=== PATIENT | male | born 1990 | race Two or more races ===

== ENCOUNTER 2023-10-11 06:48 | Inpatient (IN) | payer SELFPAY ==
--- NOTE | ~2023-10-11 | CT_ITS ---
EXAMINATION: CT FEMUR WITHOUT CONTRAST, RIGHT CLINICAL INFORMATION: Attention to the right thigh. Question hematoma. COMPARISON: None available. TECHNIQUE: Multidetector volumetric imaging was obtained through the right thigh without contrast. Multiplanar reformatted images in coronal and sagittal orientations were submitted. This CT examination was performed using dose optimization techniques as appropriate, variously including the following: *Automated exposure control *Adjustment of mA and/or kV according to patient size (this includes techniques or standardized protocols for targeted exams where dose is matched to indication/reason for exam; i.e. extremities or head) *Use of iterative reconstruction technique DLP: 346 mGy-cm FINDINGS: No fracture or malalignment. Right hip joint appears well-preserved. Bone mineralization is normal. No fractures. Imaged portion of the knee is unremarkable. There is fat stranding surrounding the gluteus minimus and gluteus medius muscles as well as the proximal portion of the vastus lateralis, potentially due to muscle strains are contusions in this region. No discrete hematoma is identified. A intramuscular hematoma would be difficult to exclude. There is also fat stranding surrounding the sciatic nerve over a distance of approximately 12 cm from the level of the ischial tuberosity to the mid thigh, potentially corresponding to an additional site of soft tissue contusion or focal injury. No fluid collections are identified. No appreciable hip joint effusion. Imaged intrapelvic soft tissues are unremarkable. No adenopathy. No skin thickening. CT/CT femur RT wo IV con IMPRESSION: 1. Fat stranding surrounding the gluteus minimus and gluteus medius muscles as well as the proximal portion of the vastus lateralis, potentially due to muscle strains or contusions. No discrete hematoma is identified. 2. Fat stranding surrounding the sciatic nerve over a distance of approximately 12 cm from the level of the ischial tuberosity to the mid thigh, potentially corresponding to an additional site of soft tissue contusion or focal injury. 3. No fractures.
--- NOTE | ~2023-10-11 | XR_ITS ---
EXAMINATION: XR CHEST CLINICAL INFORMATION: Pneumonia COMPARISON: None available. TECHNIQUE: 2 views of the chest were obtained. FINDINGS: Right upper lobe consolidation is present sitting on top of the minor fissure. The lungs are otherwise clear. Heart size normal. No pleural effusions. XR/XR chest 2V IMPRESSION: Right upper lobe pneumonia.
--- NOTE | ~2023-10-11 | CT_ITS ---
EXAMINATION: CT BRAIN WITHOUT CONTRAST CT CERVICAL SPINE WITHOUT CONTRAST CLINICAL INFORMATION: 33-year-old with recent trauma. COMPARISON: None available. TECHNIQUE: Volumetric MDCT imaging of the brain was done from the skull base to the vertex reconstructed at 2 and 5 mm partition thickness with multiplanar reformatted reconstructions. Volumetric CT imaging of the cervical spine was performed with multiplanar reformatted reconstructions. This CT examination was performed using dose optimization techniques as appropriate, variously including the following: * Automated exposure control * Adjustment of mA and/or kV according to patient size (this includes techniques or standardized protocols for targeted exams where dose is matched to indication/reason for exam; i.e. extremities or head) * Use of iterative reconstruction technique DLP: 1480 mGy-cm BRAIN FINDINGS: Brain Volume: Within normal limits within the limitations of qualitative assessment. Structural: No malformations. Brain and Meninges: There is relatively disproportionate hypodensity involving the globi pallidi bilaterally, which is a nonspecific finding. Otherwise, the remainder of the brain parenchyma is normal in morphology and attenuation. Abdalla-white matter interface is preserved. There is no acute territorial infarct, intracranial hemorrhage, extra-axial fluid collection, space-occupying process, or mass effect. Ventricles and Subarachnoid Spaces: The ventricular system and subarachnoid spaces are within normal range; there is no hydrocephalus. Orbital Structures: Grossly unremarkable within the limitations of the study. Osseous Structures, Sinuses/Mastoids, Extracranial Soft Tissues: The calvarium appears grossly intact. The mastoids and middle ear cavities are unopacified. There is some mucosal thickening and a small retention cyst along the anterior wall of the sphenoid sinus on the right, and there is some mucosal thickening with a small air-fluid level in the right maxillary sinus, with soft tissue density occluding the right maxillary sinus ostium suggesting right-sided maxillary sinusitis. CT/CT cervical spine wo IV con IMPRESSION: 1. Findings suggesting disproportionate hypodensity of the globi pallidi bilaterally. Recommend clinical correlation for any history of toxic exposures or metabolic abnormalities that could account for this. Carbon monoxide poisoning is considered unlikely in the absence of clinical evidence of anoxic-encephalopathy. Consider MRI for additional evaluation if clinically warranted. 2. No acute territorial infarct, intracranial hemorrhage, extra-axial fluid collection, significant space-occupying process, mass effect, or hydrocephalus. CERVICAL FINDINGS: Technical Note: Images are degraded by motion artifact. The cervical spine is anatomically aligned. There is no spondylolisthesis or significant retrolisthesis. The craniocervical junction and C1-C2 articulations are grossly intact. No acute fractures are identified within the limitations of the study. Facet joints are grossly intact. The intervertebral disc space heights are well maintained. There is no significant spondylosis. No significant bony canal or neural foraminal stenosis is identified within the limitations of the study. Evaluation of the soft tissues within the canal and neural foramina is limited on this exam. If this is a clinical concern, MRI would be recommended for better assessment as disc herniations and cord impingement cannot be excluded on this study. No significant DJD is seen. Incidental note is made of patchy infiltrates in the right upper lobe suggesting infectious or inflammatory disease. Correlate with clinical symptoms and chest x-ray. IMPRESSION: 1. Limitations due to motion artifact. 2. Within these limitations, no gross acute fracture or dislocation seen and no significant bony canal or neural foraminal stenosis. Soft tissues within the canal and neural foramina are not well evaluated. If clinically warranted, MRI of the cervical spine may be of additional value, as detailed above. 3. Right upper lobe infiltrate. Infectious or inflammatory disease is suspected. Correlate with clinical symptoms and chest x-ray. The [facility] staff will call to confirm receipt of this report with acknowledgement of the findings and any recommendations.
[2023-10-11 07:00] VITALS: BP 134/91; BP 144/95; PULSE 83; PULSE 86; RESP 16; TEMP 37.2; O2SAT 96; BMI 25.6
[2023-10-11 07:05] VITALS: BP 144/95; PULSE 96; RESP 16; TEMP 37.2; O2SAT 96
--- NOTE | 2023-10-11 07:08 | PC.NURSE ---
patient arrives via EMS from home, per EMS family called r/t patient sleeping face down in his room and being difficult to arouse,. per EMS patient with psychiatric history and history of drug abuse, EMS tells this RN that patient had to be narcanned yesterday. patient smells of ETOH at this time, only alert to painful stimuli, patient not willing to answer this RNs questions, stating i just want to sleep . patient able to maintain his own airway at this time, no complaints offered, vital signs stable. no visitors allowed at this time due to family becoming aggressive with EMS.
--- NOTE | 2023-10-11 07:34 | ED.GENADULT ---
HPI - General Adult General Chief complaint: ETOH/Substance Use Stated complaint: crisis Time Seen by Provider: 10/11/23 07:15 Source: EMS Mode of arrival: EMS History of Present Illness HPI narrative: This is a 33 years old brought in because was found unresponsive by the family. Per EMS report he has a history of alcohol abuse and drug abuse. Patient right now is unable to give history. Onset (ago): hour(s) (1) Radiation: non-radiation Severity: moderate Relieving factors: none Exacerbating factors: none Related Data Allergies Allergy/AdvReac Type Severity Reaction Status Date / Time No Known Allergies Allergy Verified 10/11/23 07:05 Review of Systems Review of Systems: Yes Unobtainable due to mental condition [facility] Social History Social History Unable to assess alcohol history related to: Refusing to respond Use of substances other than those prescribed or required for medical reasons: Refusing to respond Advance Directives: No Do you have a plan to hurt others: No Plan Physical Exam ED Vital Signs: Vital Signs - 24 hr 10/11/23 07:00 10/11/23 07:05 10/11/23 12:00 Temperature 98.9 F 98.9 F 98.8 F Pulse Rate 83 96 96 Respiratory Rate 16 16 18 Blood Pressure 144/95 H 144/95 H 135/84 Pulse Oximetry 96 96 100 Oxygen Delivery Method Room Air Room Air Room Air BMI result Body Mass Index 25.6 Vital sign stable is lethargic but easily arousable Const General: no acute distress Nutritional Appearance: average body habitus HENMT Other: No sign of trauma in the head Face and sinus: Yes normal facial exam Neck Neck: Yes normal visual inspection Chest Chest palpation & inspection: normal inspection of the chest Resp Effort & Inspection: normal respiratory effort Auscultation: clear to auscultation bilaterally Cardio Jugular venous distension: no JVD Rate: regular rate Rhythm: regular rhythm GI Inspection: Yes normal to inspection Palpation (GI): Soft to palpation, not firm and nontender Auscultation: normal bowel sounds Skin General skin exam: no rashes or lesions noted and elasticity normal Rashes: no rashes Neuro General: other (Lethargic but arousable) Course Reevaluation(s) Reevaluation #1: More awake urinalysis resulted urine toxicology resulted positive fentanyl and cocaine. I spoke with his girlfriend she tells me that he just got out detox few days ago Time: 12:47 Reevaluation #2: Patient remain stable hemodynamically, chest x-ray showed a lobar pneumonia, he has an elevated CPK. Blood culture done antibiotic administer fluid given for the rhabdomyolysis. His vital signs are very stable he is normotensive he is not tachycardic and he is afebrile, CT scan of the right thigh was ordered because he is complaining right thigh pain and on palpation appear to have a hematoma. I discussed the case with the hospitalist Time: 15:32 Reevaluation #3: Off shift now CT femur pending I made Dr. Ray aware of the pending CT result Time: 16:05 Medications Administered Generic Name Dose Route Start Last Admin Trade Name Freq PRN Reason Stop Dose Admin Sodium Chloride 1,000 mls @ 999 mls/hr 10/11/23 15:30 10/11/23 15:42 Ns IVCONT 10/11/23 16:30 999 mls/hr .Q1H1M PEREZ Administration Sodium Chloride 1,000 mls @ 999 mls/hr 10/11/23 15:30 10/11/23 15:58 Ns IVCONT 10/11/23 16:30 999 mls/hr .Q1H1M PEREZ Administration Discontinued Medications Generic Name Dose Route Start Last Admin Trade Name Freq PRN Reason Stop Dose Admin Piperacillin Sod/Tazobactam 100 mls @ 200 mls/hr 10/11/23 13:27 10/11/23 14:52 Sod 4.5 gm/ Sodium Chloride IV 10/11/23 13:56 Infused ONCE ONE Infusion Vancomycin HCl 2,000 mg in 500 mls @ 250 mls/hr 10/11/23 13:45 10/11/23 15:10 Vancomycin/Ns IV 10/11/23 15:44 250 mls/hr ONCE ONE Administration Sodium Chloride 1,000 mls @ 999 mls/hr 10/11/23 13:45 10/11/23 15:15 Ns IVCONT 10/11/23 14:45 Infused .Q1H1M PEREZ Infusion Medical Decision Making Medical Decision Making [facility] Narrative: Patient was found down by the family will obtain imaging of the head and brain labs and reassess Differential Diagnosis Differential Diagnoses: The differential diagnosis associated with the presentation includes Subdural hematoma/epidural hematoma/alcohol intoxication/drug abuse Admission/Observation Consideration of admission/observation: Escalation of care including admission/observation considered Consult Healthcare Provider Management of the patient was discussed with: Hospitalist Lab Data MDM Lab Attestation statement: I reviewed the patient's lab results. 10/11/23 07:41 10/11/23 07:41 Labs: Lab Results 10/11/23 10/11/23 Range/Units 07:41 10:39 WBC 13.5 H (4.8-10.8) X10*3/uL RBC 5.39 (4.60-5.80) X10*6/uL Hgb 14.8 (14.0-18.0) g/dl Hct 44.2 (42.0-52.0) % MCV 82.0 (80.0-98.0) fL MCH 27.5 (27.0-33.0) pg MCHC 33.5 (31.0-36.0) g/dl RDW 12.3 (11.0-16.0) % Plt Count 175 (160-400) X10*3/uL MPV 9.8 (9.4-12.4) fL Immature Gran % (Auto) 0.4 (0.0-0.4) % Neut % (Auto) 84.5 H (45-73) % Lymph % (Auto) 7.8 L (20-40) % Bonner % (Auto) 7.2 (2-11) % Eos % (Auto) 0.0 (0-4) % Baso % (Auto) 0.1 (0-2) % Lymph # (Auto) 1.1 L (1.2-4.9) X10*3/uL Bonner # (Auto) 1.0 (0.1-1.2) X10*3/uL Eos # (Auto) 0.0 (0.0-0.4) X10*3/uL Baso # (Auto) 0.0 (0.0-0.2) X10*3/uL Abs Immat Gran (auto) 0.06 H (0.00-0.03) X10*3/uL Absolute Neuts (auto) 11.4 H (2.0-8.3) x10*3/uL Absolute Nucleated RBC 0.000 (0.0-0.012) X10*3/uL Nucleated RBC % (auto) 0.0 (0.0-0.2) /100WBC Sodium 140 (135-145) mmol/L Potassium 3.6 (3.3-5.1) mmol/L Chloride 105 (96-108) mmol/L Carbon Dioxide 24 (22-29) mmol/L Anion Gap 15 (12-20) BUN 25 H (9-16) mg/dL Creatinine 1.13 (0.5-1.4) mg/dL Estim Creat Clear Calc 103.9 Estimated GFR > 60 Random Glucose 120 H (60-115) mg/dL Calcium 8.9 (8.4-10.2) mg/dL Total Bilirubin 1.2 H (0.0-1.0) mg/dL AST 439 H (5-37) U/L ALT 144 H (0-40) U/L Alkaline Phosphatase 53 (39-117) U/L Total Creatine Kinase > 22628 H (38-174) U/L Total Protein 8.1 H (6.5-8.0) g/dL Albumin 4.6 (3.5-5.0) g/dL Urine Color Dark Yellow Urine Appearance Cloudy Urine pH 5.5 (5.0-9.0) Ur Specific [place] 1.020 (1.005-1.025) Urine Protein 100 (2+) H (Neg-Trace) mg/dL Urine Glucose (UA) Negative (Negative) mg/dL Urine Ketones 15 (Negative) mg/dL Urine Blood Large (3+) H (Negative) Urine Nitrite Negative (Negative) Ur Leukocyte Esterase Trace H (Negative) Urine RBC 3-5 H (0-2) /HPF Urine WBC 0-5 (0-5) /HPF Ur Squamous Epith Cells 11-20 (0-2) /HPF Urine Bacteria None Seen (None Seen) Hyaline Casts 0-2 (0-2) /LPF Granular Casts Present Urine Opiates Screen Not Detected (Not Detect) Ur Buprenorphine Scrn Not Detected (Not Detect) ng/mL Ur Oxycodone Screen Not Detected (Not Detect) ng/mL Urine Methadone Screen Not Detected (Not Detect) ng/mL Urine Fentanyl Screen POSITIVE H (Not Detect) Ur Barbiturates Screen Not Detected (Not Detect) Ur Phencyclidine Scrn Not Detected (Not Detect) Ur Amphetamines Screen Not Detected (Not Detect) U Benzodiazepines Scrn Not Detected (Not Detect) Urine Cocaine Screen POSITIVE H (Not Detect) U Marijuana (THC) Screen Not Detected (Not Detect) Ethyl Alcohol < 10 mg/dL Independent Interpretation I performed an independent interpretation of an: Plain X-Ray Interpretation: I personally reviewed interpreted the chest x-ray as right upper lobe pneumonia Radiology Impression Discussion of test interpretation with radiology: I have reviewed the radiologist's reading. Radiologist Impression: cc: Duncan Moreno MD; Physician,None ~ EXAMINATION: XR CHEST CLINICAL INFORMATION: Pneumonia COMPARISON: None available. TECHNIQUE: 2 views of the chest were obtained. FINDINGS: Right upper lobe consolidation is present sitting on top of the minor fissure. The lungs are otherwise clear. Heart size normal. No pleural effusions. XR/XR chest 2V IMPRESSION: Right upper lobe pneumonia. Dictated By: Mike Miller MD Signed By: <Electronically signed by Mike Miller MD in OV> 10/11/23 1307 DD/ 1156 Independent Historian Clinical information obtained from an independent historian. History obtained from or confirmed by: Other girlfriend Chronic Conditions Patient?s care impacted by: Other (Substance abuse) Critical Care Time Critical Care Time Critical Care Time: Yes Total Critical Care Time: 60 Attestation: Altered mental status/rhabdomyolysis pneumonia, IV fluids IV antibiotic Discharge Plan Discharge Clinical Impression: Opioid use disorder Pneumonia Qualifiers: Pneumonia type: due to unspecified organism Laterality: right Lung location: upper lobe of lung Qualified Code(s): J18.9 - Pneumonia, unspecified organism Rhabdomyolysis Qualifiers: Rhabdomyolysis type: non-traumatic Qualified Code(s): M62.82 - Rhabdomyolysis Patient Disposition: Admitted As Inpatient Print Language: Ecuadorean
[2023-10-11 07:44] LABS: MANUAL DIFF FLAG NO
[2023-10-11 07:45] LABS: Basophils Percent Auto 0.1 % (0-2); Hematocrit 44.2 % (42.0-52.0); Hemoglobin 14.8 g/dl (14.0-18.0); Imm Gran Abs Auto 0.06 X10*3/uL (0.00-0.03); Imm Gran Pct Auto 0.4 % (0.0-0.4); Lymphocytes Absolute Auto 1.1 X10*3/uL (1.2-4.9); Lymphocytes Percent Auto 7.8 % (20-40); Mean Corpuscular HGB Conc 33.5 g/dl (31.0-36.0); Mean Corpuscular Hemoglobin 27.5 pg (27.0-33.0); Mean Platelet Volume 9.8 fL (9.4-12.4); Monocytes Percent Auto 7.2 % (2-11); Neutrophils Absolute Auto 11.4 x10*3/uL (2.0-8.3); Neutrophils Percent Auto 84.5 % (45-73); Platelet Count 175 X10*3/uL (160-400); Red Blood Count 5.39 X10*6/uL (4.60-5.80); Red Cell Distribution Width 12.3 % (11.0-16.0); White Blood Count 13.5 X10*3/uL (4.8-10.8)
[2023-10-11 08:08] LABS: Alanine Aminotransferase 144 U/L (0-40); Albumin Level 4.6 g/dL (3.5-5.0); Alkaline Phosphatase 53 U/L (39-117); Anion Gap 15 (12-20); Aspartate Amino Transferase 439 U/L (5-37); Bilirubin Total 1.2 mg/dL (0.0-1.0); Blood Urea Nitrogen 25 mg/dL (9-16); Calcium 8.9 mg/dL (8.4-10.2); Carbon Dioxide 24 mmol/L (22-29); Chloride 105 mmol/L (96-108); Creatinine Clr Calc Pharmacy 103.9; Estimated Glomerular Filt Rate > 60; Ethanol < 10 mg/dL; Glucose Random 120 mg/dL (60-115); Potassium 3.6 mmol/L (3.3-5.1); Sodium 140 mmol/L (135-145); Total Protein 8.1 g/dL (6.5-8.0)
--- NOTE | 2023-10-11 08:53 | PC.NURSE ---
patient reeducated on need for urine sample, states he will not give one at this time. made aware
--- NOTE | 2023-10-11 10:35 | PC.NURSE ---
Urine obtained from patient, urine dark brown, provider aware
[2023-10-11 10:53] LABS: Appearance Urine Cloudy; Color Urine Dark Yellow; Glucose Urine UA Negative (Negative); Leukocyte Esterase Urine Trace (Negative); Nitrite Urine Negative (Negative); PH 5.5 (5.0-9.0); UMIC TRIGGER UACC YES; Urine Blood Large (3+) (Negative); Urine Ketones 15 mg/dL (Negative); Urine Protein 100 (2+) mg/dL (Neg-Trace)
[2023-10-11 10:58] LABS: Amphetamine Screen Urine Not Detected (Not Detect); Barbiturates, Urine Not Detected (Not Detect); Benzodiazepines Screen Urine Not Detected (Not Detect); Buprenorphine Scr Not Detected (Not Detect); Cannabinoid Screen Urine Not Detected (Not Detect); Cocaine Screen Urine POSITIVE (Not Detect); Fentanyl, urine POSITIVE (Not Detect); Methadone Screen, Urine Not Detected (Not Detect); Opiate Screen Urine Not Detected (Not Detect); Oxycodone Screen Urine Not Detected (Not Detect); Phencyclidine Screen Urine Not Detected (Not Detect)
[2023-10-11 11:04] LABS: Bacteria Urine None Seen (None Seen); Granular Casts Urine Present; Hyaline Casts Urine 0-2 /LPF (0-2); WBC Urine 0-5 /HPF (0-5)
[2023-10-11 12:00] VITALS: BP 135/84; PULSE 96; RESP 18; TEMP 37.1; O2SAT 100
[2023-10-11] MEDS: Piperacillin Sodium/Tazobactam 4.5 GM in 0.9 % Sodium Chloride 100 ML IV (14:08)
[2023-10-11] MEDS: 0.9 % Sodium Chloride 1,000 ML 999 ML IVCONT ×3 (14:09→15:58)
[2023-10-11] MEDS: vancomycin/NS 2,000 MG/500 ML PLAST..BAG 250 MG IV (15:10)
--- NOTE | 2023-10-11 15:59 | PM.IMHP ---
History of Present Illness Date of Service: 10/11/23 Attending physician on admission: Yuniel Gamez Chief Complaint: unresponsive 33 year old male with history of anxiety/depression and crack cocaine abuse presented to the ED earlier today for evaluation of unresponsiveness reports by . The patient reports feeling foggy, confused, diffusely weak, and reports pain in the right upper and lower extremity. His at bedside assists with history. She reports the patient was asleep for abotu 24 hours. She woke up around 4pm yesterday and he was difficult to arouse, foggy, and would fall right back to sleep. The patient endorses smoking crack cocaine 2 days ago. He was just discharged from [facility] program which sounds like was for dual diagnosis. Denies IVDA. Reports occassional alcohol use. Smoked 4 cigarettes per day. Denies SI, HI. No fevers, chills, st, congestion, abd pain, n/v/d, urinary symptoms, cough, lightheadedness, palpitations, chest pain. Since arrival, vitals stable. WBC 13.5. Renal fx normal. Lytes normal. Glucose 120. Total bili 1.2, AST 439, ALT 144. Total CK greater than 42,000. Urinalysis significant for trace leukocytes, 3+ blood, 2+ protein. Urine tox screen positive for fentanyl and cocaine. Head CT negative for acute intracranial abnormality the limited due to motion. Cervical spine CT negative for acute osseous abnormality. CXR shows right upper lobe pneumonia. Femur CT shows fat stranding surrounding the gluteus minimus and gluteus medius muscles as well as the proximal portion of the vastus lateralis potentially due to muscle strain or contusion but no discrete hematoma identified. There is also fat stranding surrounding the sciatic nerve over a distance of approximately 12 cm from the level of the ischial tuberosity to the mid thigh. No fracture. In the ED, has received IV Zosyn and vanco, IV fluids. Review of Systems Review of Systems: Yes all other systems are reviewed and are negative [facility] Medical History Crack cocaine use Social History Unable to assess alcohol history related to: Refusing to respond Use of substances other than those prescribed or required for medical reasons: Refusing to respond Advance Directives: No Do you have a plan to hurt others: No Plan Meds Allergies Allergy/AdvReac Type Severity Reaction Status Date / Time No Known Allergies Allergy Verified 10/11/23 07:05 Active Medications: Current Medications Sodium Chloride (Ns) 1,000 mls @ 999 mls/hr IVCONT .Q1H1M [facility] Stop: 10/11/23 16:30 Last Admin: 10/11/23 15:42 Dose: 999 mls/hr Sodium Chloride (Ns) 1,000 mls @ 999 mls/hr IVCONT .Q1H1M PEREZ Stop: 10/11/23 16:30 Last Admin: 10/11/23 15:58 Dose: 999 mls/hr Physical Exam Vital Signs and Narrative: Vital Signs: Last Vital Signs Temp 98.8 F 10/11/23 12:00 Pulse 96 10/11/23 12:00 Resp 18 10/11/23 12:00 BP 135/84 10/11/23 12:00 Pulse Ox 100 10/11/23 12:00 O2 Del Method Room Air 10/11/23 12:00 BMI result Body Mass Index 25.6 Constitutional - Awake and Alert, No apparent distress Eyes - PERRLA, EOMI Cardiovascular - S1S2, RRR, No edema Respiratory - Normal lung expansion, Normal respiratory effort, No respiratory distress, CTA bilaterally Gastrointestinal - NT / ND; +BS; No rebound or guarding Extremities - no calf tenderness bilaterally, no swelling Musculoskeletal - TTP with focal swelling and mild ecchymosis of the lateral aspect of the R mid thigh Skin - Warm/Dry Neurological - Alert & oriented x3, 4/5 strength BUE and BLE Psychological - Appropriate affect Results Labs 10/11/23 07:41 10/11/23 07:41 Labs: Laboratory Results - last 24 hr 10/11/23 10/11/23 07:41 10:39 MCV 82.0 MCH 27.5 MCHC 33.5 RDW 12.3 Plt Count 175 MPV 9.8 Immature Gran % (Auto) 0.4 Neut % (Auto) 84.5 H Lymph % (Auto) 7.8 L [place]ulk % (Auto) 7.2 Eos % (Auto) 0.0 Baso % (Auto) 0.1 Lymph # (Auto) 1.1 L Faulk # (Auto) 1.0 Eos # (Auto) 0.0 Baso # (Auto) 0.0 Abs Immat Gran (auto) 0.06 H Absolute Neuts (auto) 11.4 H Absolute Nucleated RBC 0.000 Nucleated RBC % (auto) 0.0 Anion Gap 15 Estim Creat Clear Calc 103.9 Estimated GFR > 60 Random Glucose 120 H Calcium 8.9 Total Bilirubin 1.2 H AST 439 H ALT 144 H Alkaline Phosphatase 53 Total Creatine Kinase > 10404 H Total Protein 8.1 H Albumin 4.6 Urine Color Dark Yellow Urine Appearance Cloudy Urine pH 5.5 Ur Specific [place] 1.020 Urine Protein 100 (2+) H Urine Glucose (UA) Negative Urine Ketones 15 Urine Blood Large (3+) H Urine Nitrite Negative Ur Leukocyte Esterase Trace H Urine RBC 3-5 H Urine WBC 0-5 Ur Squamous Epith Cells 11-20 Urine Bacteria None Seen Hyaline Casts 0-2 Granular Casts Present Urine Opiates Screen Not Detected Ur Buprenorphine Scrn Not Detected Ur Oxycodone Screen Not Detected Urine Methadone Screen Not Detected Urine Fentanyl Screen POSITIVE H Ur Barbiturates Screen Not Detected Ur Phencyclidine Scrn Not Detected Ur Amphetamines Screen Not Detected U Benzodiazepines Scrn Not Detected Urine Cocaine Screen POSITIVE H U Marijuana (THC) Screen Not Detected Ethyl Alcohol < 10 Imaging Radiologist's Impressions: Impressions Cervical Spine CT 10/11/23 08:43 IMPRESSION: 1. Findings suggesting disproportionate hypodensity of the globi pallidi bilaterally. Recommend clinical correlation for any history of toxic exposures or metabolic abnormalities that could account for this. Carbon monoxide poisoning is considered unlikely in the absence of clinical evidence of anoxic-encephalopathy. Consider MRI for additional evaluation if clinically warranted. 2. No acute territorial infarct, intracranial hemorrhage, extra-axial fluid collection, significant space-occupying process, mass effect, or hydrocephalus. CERVICAL FINDINGS: Technical Note: Images are degraded by motion artifact. The cervical spine is anatomically aligned. There is no spondylolisthesis or significant retrolisthesis. The craniocervical junction and C1-C2 articulations are grossly intact. No acute fractures are identified within the limitations of the study. Facet joints are grossly intact. The intervertebral disc space heights are well maintained. There is no significant spondylosis. No significant bony canal or neural foraminal stenosis is identified within the limitations of the study. Evaluation of the soft tissues within the canal and neural foramina is limited on this exam. If this is a clinical concern, MRI would be recommended for better assessment as disc herniations and cord impingement cannot be excluded on this study. No significant DJD is seen. Incidental note is made of patchy infiltrates in the right upper lobe suggesting infectious or inflammatory disease. Correlate with clinical symptoms and chest x-ray. IMPRESSION: 1. Limitations due to motion artifact. 2. Within these limitations, no gross acute fracture or dislocation seen and no significant bony canal or neural foraminal stenosis. Soft tissues within the canal and neural foramina are not well evaluated. If clinically warranted, MRI of the cervical spine may be of additional value, as detailed above. 3. Right upper lobe infiltrate. Infectious or inflammatory disease is suspected. Correlate with clinical symptoms and chest x-ray. The [facility] staff will call to confirm receipt of this report with acknowledgement of the findings and any recommendations. Head CT 10/11/23 09:53 IMPRESSION: 1. Findings suggesting disproportionate hypodensity of the globi pallidi bilaterally. Recommend clinical correlation for any history of toxic exposures or metabolic abnormalities that could account for this. Carbon monoxide poisoning is considered unlikely in the absence of clinical evidence of anoxic-encephalopathy. Consider MRI for additional evaluation if clinically warranted. 2. No acute territorial infarct, intracranial hemorrhage, extra-axial fluid collection, significant space-occupying process, mass effect, or hydrocephalus. CERVICAL FINDINGS: Technical Note: Images are degraded by motion artifact. The cervical spine is anatomically aligned. There is no spondylolisthesis or significant retrolisthesis. The craniocervical junction and C1-C2 articulations are grossly intact. No acute fractures are identified within the limitations of the study. Facet joints are grossly intact. The intervertebral disc space heights are well maintained. There is no significant spondylosis. No significant bony canal or neural foraminal stenosis is identified within the limitations of the study. Evaluation of the soft tissues within the canal and neural foramina is limited on this exam. If this is a clinical concern, MRI would be recommended for better assessment as disc herniations and cord impingement cannot be excluded on this study. No significant DJD is seen. Incidental note is made of patchy infiltrates in the right upper lobe suggesting infectious or inflammatory disease. Correlate with clinical symptoms and chest x-ray. IMPRESSION: 1. Limitations due to motion artifact. 2. Within these limitations, no gross acute fracture or dislocation seen and no significant bony canal or neural foraminal stenosis. Soft tissues within the canal and neural foramina are not well evaluated. If clinically warranted, MRI of the cervical spine may be of additional value, as detailed above. 3. Right upper lobe infiltrate. Infectious or inflammatory disease is suspected. Correlate with clinical symptoms and chest x-ray. The [facility] staff will call to confirm receipt of this report with acknowledgement of the findings and any recommendations. Chest X-Ray 10/11/23 11:56 IMPRESSION: Right upper lobe pneumonia. Assessment and Plan (1) Rhabdomyolysis: Qualifiers: Rhabdomyolysis type: non-traumatic Qualified Code(s): M62.82 - Rhabdomyolysis Status: Acute (2) Pneumonia: Qualifiers: Laterality: right Lung location: upper lobe of lung Pneumonia type: due to unspecified organism Qualified Code(s): J18.9 - Pneumonia, unspecified organism Status: Acute (3) Crack cocaine use: Status: Acute Plan 33 year old male with history of anxiety/depression and crack cocaine abuse admitted for cocaine induced rhabdomyolysis and pneumonia #cocaine induced rhabdomyolysis -CPK >22872, renal fx wnl. -Aggressive IVF with NS @200ml/hr -follow renal function/cpk -urine tox screen +for cocaine and fentanyl. Reports smoking crack cocaine -addiciton med consult #Contusion RLE -denies trauma but has been sleeping 24+ hours in one position reportedly -CT without evidence of hematoma or necrotizing fasciitis -pain management p.r.n. #Community acquired penumonia -leukocytosis 13.4, tachycardia due to pain/dehydration. no sepsis #Elevated LFTs -?r/t drug use vs rhabdo -check hep b/c, hiv -follow lfts dvt prophylaxis- lovenox full code Patient requires inpatient stay at least 2 midnights for management of cocaine induced rhabdomyolysis with significantly elevated CPK greater than 42,000 requiring aggressive IV fluid resuscitation, close monitoring of renal function and electrolyte levels as well as trending of CPK Quality Stroke Does the patient have a stroke diagnosis?: No VTE Prior VTE?: No VTE Risk Level:: Medical - moderate - high VTE Device Contraindication: Treatment Not Indicated VTE Drug Contraindication: N/A - Med Ordered
[2023-10-11] MEDS: Enoxaparin Sodium 40 MG/0.4 ML SYRINGE SUBCUT (17:26)
[2023-10-11] MEDS: 0.9 % Sodium Chloride 1,000 ML 200 ML IVCONT ×2 (17:27→22:01)
[2023-10-11 18:31] VITALS: BP 144/85; PULSE 88; RESP 18; TEMP 37.2; O2SAT 98
--- NOTE | 2023-10-11 18:40 | PC.NURSE ---
Alert and oriented, at bedside. Aware of plan to be admitted upstairs. Urine remains dark brown, maintenance fluids running
--- NOTE | 2023-10-11 19:19 | PHA.MEDREC ---
Pharmacy Consult ? Medication Reconciliation Pharmacy has completed the medication reconciliation. Tried to speak to patient to confirm med list, however patient kept falling asleep. went down to speak to him again and his was at bedside. She was able to tell me he was just discharged from [facility] on a section [facility]. she was able to provide the number on the patients medication. Called the pharmacy they where able to confirm patients med list. Clonidine 0.1 mg daily , Clonidine 0.2 at bedtime, Seroquel 300 mg at bedtime, Trazodone 50 mg at bedtime, and Wellbutrin 150 mg bid .The pharmacist stated he was discharged from [facility] on 10-07-23
[2023-10-11 19:40] VITALS: BP 145/89; PULSE 94; RESP 17; O2SAT 99
[2023-10-11] MEDS: cefTRIAXone sodium 1 GM in 0.9 % Sodium Chloride 50 ML IV (19:41)
[2023-10-11] MEDS: Morphine Sulfate 4 MG/ML CARTRIDGE IVPUSH (19:41)
[2023-10-11] MEDS: Doxycycline Hyclate 100 MG in 0.9 % Sodium Chloride 250 ML 166.67 MG IV (22:00)
[2023-10-11 23:30] VITALS: BP 150/77; PULSE 88; RESP 18; TEMP 37.3; O2SAT 95
[2023-10-12] MEDS: Morphine Sulfate 4 MG/ML CARTRIDGE IVPUSH ×2 (02:39→20:43)
[2023-10-12] MEDS: 0.9 % Sodium Chloride 1,000 ML 200 ML IVCONT ×4 (05:12→19:31)
[2023-10-12 06:24] LABS: MANUAL DIFF FLAG NO
[2023-10-12 06:32] LABS: Basophils Percent Auto 0.3 % (0-2); Eosinophils Absolute Auto 0.1 X10*3/uL (0.0-0.4); Eosinophils Percent Auto 0.6 % (0-4); Hematocrit 36.5 % (42.0-52.0); Hemoglobin 11.9 g/dl (14.0-18.0); Imm Gran Abs Auto 0.05 X10*3/uL (0.00-0.03); Imm Gran Pct Auto 0.5 % (0.0-0.4); Lymphocytes Absolute Auto 1.6 X10*3/uL (1.2-4.9); Lymphocytes Percent Auto 16.8 % (20-40); Mean Corpuscular HGB Conc 32.6 g/dl (31.0-36.0); Mean Platelet Volume 10.7 fL (9.4-12.4); Monocytes Absolute Auto 0.9 X10*3/uL (0.1-1.2); Monocytes Percent Auto 9.3 % (2-11); Neutrophils Absolute Auto 6.9 x10*3/uL (2.0-8.3); Neutrophils Percent Auto 72.5 % (45-73); Platelet Count 149 X10*3/uL (160-400); Red Cell Distribution Width 12.2 % (11.0-16.0); White Blood Count 9.6 X10*3/uL (4.8-10.8)
[2023-10-12 06:57] LABS: Alanine Aminotransferase 152 U/L (0-40); Albumin Level 3.5 g/dL (3.5-5.0); Alkaline Phosphatase 49 U/L (39-117); Anion Gap 9 (12-20); Aspartate Amino Transferase 438 U/L (5-37); Blood Urea Nitrogen 9 mg/dL (9-16); Carbon Dioxide 25 mmol/L (22-29); Chloride 110 mmol/L (96-108); Creatinine Clr Calc Pharmacy 165.4; Estimated Glomerular Filt Rate > 60; Glucose Random 133 mg/dL (60-115); Sodium 140 mmol/L (135-145)
[2023-10-12 07:24] VITALS: BP 135/86; PULSE 103; RESP 16; TEMP 36.9; O2SAT 95
[2023-10-12 08:21] LABS: HBS Num1 0.55 mIU/mL (0-7.99); HBc Num1 0.11 S/CO (0.00-0.79); HBsAGNum1 0.31 S/CO (0.00-0.99); HIV AB/AG Nonreactive (Nonreactive); HIV Num 1 0.08 S/CO (0.00-0.99); Hepatitis B Core Antibody Nonreactive (Nonreactive); Hepatitis B Surface Antigen Negative (Negative); ~HepC Num1 0.12 S/CO (0.00-0.79); ~Hepatitis B Surface Antibody NONREACTIVE (Nonreactive); ~Hepatitis C Antibody Nonreactive (Nonreactive)
[2023-10-12] MEDS: Doxycycline Hyclate 100 MG in 0.9 % Sodium Chloride 250 ML 166.67 MG IV ×2 (08:30→20:42)
--- NOTE | 2023-10-12 09:06 | PC.NURSE ---
Patient reported patient took clonidine 0.1 mg,Trazodone 50 mg last night from his own meds,educated patient and about the risk of taking own meds while in the hospital, took all meds,both states understanding,RN asked if Telesiter can be placed since patient is lethargic ,but said no,Dr. Gamez notified will speak to patient about placing camera in room for patient safety.
--- NOTE | 2023-10-12 10:10 | PC.NURSE ---
Spoke with patient patent attorney Mr. Blaise Graham,concerns about patient status,Dr. Dr. Gamez notified,Case Management notified speaking with patent attorney at present
--- NOTE | 2023-10-12 10:29 | PC.NURSE ---
Camera placed in patient room for safety by Charge nurse Mirtha,patient sleeping at present
--- NOTE | 2023-10-12 11:18 | HO.PM.IMPN ---
Subjective Subjective Date of Service: 10/12/23 Interval History: Being followed for cocaine induced rhabdo and right buttock/thigh pain Patient this morning noted to be somnolent but easily arousable, later in afternoon patient awake alert admitted of taking his home medications Seroquel 300 mg and trazodone 50 mg at bedtime, Complaining of persistent right buttock pain although right thigh pain has improved, denies injury, no falls, no fevers, no chills. Review of Systems All other system reviewed and are negative. Physical Exam Vital Signs: Vital Signs: Last Vital Signs Temp 98.5 F 10/12/23 07:24 Pulse 103 H 10/12/23 07:24 Resp 16 10/12/23 07:24 BP 135/86 10/12/23 07:24 Pulse Ox 95 10/12/23 07:24 O2 Del Method Room Air 10/12/23 07:24 BMI result Body Mass Index 25.6 Const: Other: General patient resting comfortably in no acute distress. Anicteric sclera Neck supple no JVD. CVS regular rate rhythm, Respiratory lungs clear to auscultation, no respiratory distress, no wheeze, no rhonchi. Gastrointestinal abdomen soft, non tender, bowel sounds audible, no guarding , no rigidity. Extremities no edema. Neuro non focal ,moving all 4 extremity, speech clear. Skin small open sore lateral thigh, no bruising, localized area of pain right buttock, with no discoloration ,no in duration, no fluctuation, good range of motion right hip right knee, Psych appropriate affect Objective Data Active Medications Acetaminophen (Acetaminophen 325 Mg Tablet) 650 mg PO Q6H PRN PRN Reason: Pain, Mild (Pain Scale 1-3), fever or headache Calcium Carbonate (Calcium Carbonate 750 Mg Tab.Chew) 750 mg PO Q4H PRN PRN Reason: Heartburn Enoxaparin Sodium (Enoxaparin Sodium 40 Mg/0.4 Ml Syringe) 40 mg SUBCUT Q24H [facility] Last Admin: 10/11/23 17:26 Dose: 40 mg Documented By: MAGUE Sodium Chloride (Ns) 1,000 mls @ 200 mls/hr IVCONT .Q5H [facility] Last Admin: 10/12/23 08:10 Dose: 200 mls/hr Documented By: FARRUKH Ceftriaxone Sodium 1 gm/ (Sodium Chloride) 50 mls @ 100 mls/hr IV Q24H [facility] Last Infusion: 10/11/23 20:11 Dose: Infused Documented By: CHRISTINA Doxycycline Hyclate 100 mg/ (Sodium Chloride) 250 mls @ 166.67 mls/hr IV BID [facility] Last Infusion: 10/12/23 10:20 Dose: Infused Documented By: FARRUKH Magnesium Hydroxide (Milk Of Magnesia 30 Ml Oral.Susp) 30 ml PO DAILY PRN PRN Reason: Constipation Morphine Sulfate (Morphine Sulfate 4 Mg/Ml Cartridge) 4 mg IVPUSH Q4H PRN; Protocol PRN Reason: Pain, Severe (Pain Scale 7-10) Last Admin: 10/12/23 02:39 Dose: 4 mg Documented By: BONNIE Ondansetron HCl (Ondansetron Hcl 4 Mg/2 Ml Vial) 4 mg IVPUSH Q8H PRN PRN Reason: Nausea and Vomiting Oxycodone HCl (Oxycodone Hcl Immed Release 5 Mg Tablet) 5 mg PO Q6H PRN PRN Reason: Pain, Moderate(Pain Scale 4-6) Labs 10/12/23 05:51 10/12/23 05:51 Labs: Laboratory Results - last 24 hr 10/11/23 10/11/23 10/12/23 07:41 15:56 05:51 MCV 83.0 MCH 27.0 MCHC 32.6 RDW 12.2 Plt Count 149 L MPV 10.7 Immature Gran % (Auto) 0.5 H Neut % (Auto) 72.5 Lymph % (Auto) 16.8 L Bandera % (Auto) 9.3 Eos % (Auto) 0.6 Baso % (Auto) 0.3 Lymph # (Auto) 1.6 Bandera # (Auto) 0.9 Eos # (Auto) 0.1 Baso # (Auto) 0.0 Abs Immat Gran (auto) 0.05 H Absolute Neuts (auto) 6.9 Absolute Nucleated RBC 0.000 Nucleated RBC % (auto) 0.0 Anion Gap 9 L Estim Creat Clear Calc 165.4 Estimated GFR > 60 Random Glucose 133 H Calcium 8.0 L D Total Bilirubin 1.0 AST 438 H ALT 152 H Alkaline Phosphatase 49 Total Creatine Kinase > 40464 H 38194 H Total Protein 6.0 L Albumin 3.5 Hep Bs Antigen Negative Hep Bs Antibody NONREACTIVE Hep B Core Total Ab Nonreactive Hepatitis C Ab (EIA) Nonreactive HIV 1&2 Ab/P24 Ag 4thGn Nonreactive Assessment and Plan (1) Crack cocaine use: Status: Acute (2) Rhabdomyolysis: Status: Acute (3) Pneumonia: Status: Acute Plan 33 year old male with history of anxiety/depression and crack cocaine abuse admitted for cocaine induced rhabdomyolysis and pneumonia # acute rhabdomyolysis likely Cocaine induced [place] [address],[place] [address] , renal fx wnl. -continue IVF with NS @200ml/hr -follow renal function/cpk -urine tox screen +for cocaine and fentanyl. Reports smoking crack cocaine -follow addiciton med consult #Contusion RLE -persistent right leg pain, now localized more to right buttock, noted to have no discoloration no fluctuation concerning for abscess or necrotizing fasciitis -denies trauma but has been sleeping 24+ hours in one position reportedly -CT without evidence of hematoma or necrotizing fasciitis -continue pain management p.r.n. #Community acquired penumonia -no shortness of breath, no cough WBC normalized tachycardia resolved, no sepsis , continue IV ceftriaxone/IV doxy day 2/ Blood cultures x2 pending #Elevated LFTs -repeat LFTs remain elevated, no abdominal pain, no nausea vomiting ,?r/t drug use vs rhabdo - hep b/c, hiv nonreactive -follow lfts # mood disorder will resume home medication Seroquel, bupropion, low-dose clonidine will hold trazodone due to sedation Patient assistant attorney general Jose Graham ([phone] [place] [phone]) visited today and requested for psych evaluation, as per patient's assistant attorney general he was [facility] in [place] a 3 month program , patient left program on 10/06, after few days stay. dvt prophylaxis- lovenox full code Patient requires inpatient stay at least 2 midnights for management of cocaine induced rhabdomyolysis with significantly elevated CPK greater than 42,000 requiring aggressive IV fluid resuscitation, close monitoring of renal function and electrolyte levels as well as trending of CPK Quality Stroke Does the patient have a stroke diagnosis?: No VTE Prior VTE?: No VTE Risk Level:: Medical - moderate - high VTE Device Contraindication: Treatment Not Indicated VTE Drug Contraindication: N/A - Med Ordered
--- NOTE | 2023-10-12 13:27 | MHC.RECOVRN ---
Attempted to meet with pt in 363 after consult placed to Addiction Medicine for cocaine use disorder. Pt had presented to the ED after patient was found face down in his bedroom and difficult to arouse, patient awoke to painful stimuli and maintained airway. Upon evaluation, pt admitted for rhabdomyolysis, pneumonia, and cocaine use disorder. Pt sleeping, wakes to touch but quickly falls back to sleep. Pts commercial real estate attorney, Blaise, present. Blaise informed t/w pt had been [facility] and released to [facility] in [place], a 3 month program, at the beginning of this month. Blaise reports pt was at the program 2-3 days before recurrence. Blaise reports pt does not typically use opioids, believes fentanyl was present in cocaine. Blaise reports pt has dx of schizophrenia and pt would benefit from a dual diagnosis program. Blaise denies questions or concerns for t/w. T/w to return when pt able to engage in conversation.
[2023-10-12] MEDS: Enoxaparin Sodium 40 MG/0.4 ML SYRINGE SUBCUT (14:20)
--- NOTE | 2023-10-12 14:54 | MHC.CM.PN ---
CM MET WITH PT AND PT'S ATTY. AT BEDSIDE. PT IS VERY LETHARGIC AND DIFFICULT TO AROUSE. PER ATTY, HE BELIEVES PT NEEDS A PSYCH EVAL TO DETERMINE DISPO. PER ATTY, PT HAS HX OF SCHIZOPHRENIA. HIS ATTY WOULD LIKE HIM TO HAVE AN INPT PSYCH STAY TO STABILIZE HIM. PT LIVES WITH S/O. [facility]DEPEND[facility] [place]. UNSURE IF HAS A PCP IN THE COMMUNITY PER ATTY PT HAD BEEN [facility] IN [place]. LEFT HIS PROGRAM ON 10/06. ATTY PRICILLA DE LEON ([phone] OR [phone]) MD AWARE AND PT TO BE SEEN BY ADDICTION MEDICINE AND PSYCH. CM WILL CONTINUE TO FOLLOW FOR WHEN PT IS MORE ABLE TO PARTICIPATE.
[2023-10-12 15:30] VITALS: BP 136/83; PULSE 89; RESP 14; TEMP 37.3; O2SAT 95
--- NOTE | 2023-10-12 16:38 | PC.NURSE ---
Educated patient and girlfriend on high fall risk precautions,patient refused bed alarm ,instructed to call for help when need to get out of bed
[2023-10-12] MEDS: cefTRIAXone sodium 1 GM in 0.9 % Sodium Chloride 50 ML IV (19:31)
[2023-10-12] MEDS: buPROPion HCL 75 MG TABLET 150 MG PO (20:41)
[2023-10-12] MEDS: QUEtiapine Fumarate 300 MG TABLET PO (20:42)
[2023-10-12] MEDS: cloNIDine HCL 0.1 MG TABLET PO (20:42)
--- NOTE | 2023-10-12 22:25 | PM.EVENT ---
Event Note Date of Service: 10/12/23 Event Note: 10:15 AM - Contacted to notify patient wanted to leave AMA 10:19 AM - Arrived to patient's room to speak with him but I was told he took his IV off and already walked out of the unit accompanied by his . Time Spent With Patient Time: Total time managing care of this patient today ____ minutes.
--- NOTE | 2023-10-12 22:29 | PC.NURSE ---
patients present, camera reports strange activity, both patient and going to the bathroom together , locking doors. going back and forth to the back pack, sitting on floor etc.patient here for cocaine induced rhabdo. Both not welcoming staff to attend on them and acting nervous when staff is in the room. Camera was placed in the room earlier during the day to monitor activity because patient was quite drowsy in the morning. At 2220 patient decided to leave AMA, did not state the reason. Took his own IV out and did not wait for the night hospitalist to come and talk to him. Appears that his was rushing him to leave quickly. Nursing produce department supervisor Ana Lilia present and witnessed the occurrence. Patient alert and oriented, ambulated with steady gait accompanied by his . Aware of the risk of leaving AMA. Signed AMA form..
--- NOTE | 2023-10-13 13:00 | P.DS_ITS ---
DS: Providers Provider Date of Service: 10/13/23 Date of admission: 10/11/23 16:15 Primary care physician: None Physician Consults: 10/11/23 16:30 Addiction Medicine Routine Consulting Provider: Addiction Covering Reason for consultation: crack cocaine use disorder DS: Diagnosis Discharge Diagnosis (1) Crack cocaine use: Status: Acute (2) Rhabdomyolysis: Status: Acute (3) Pneumonia: Status: Acute DS: Summary Hospital Course Hospital Course: history of presenting illness: Date of Service: 10/11/23 Attending physician on admission: Yuniel Gamez Chief Complaint: unresponsive 33 year old male with history of anxiety/depression and crack cocaine abuse presented to the ED earlier today for evaluation of unresponsiveness reports by . The patient reports feeling foggy, confused, diffusely weak, and reports pain in the right upper and lower extremity. His at bedside assists with history. She reports the patient was asleep for abotu 24 hours. She woke up around 4pm yesterday and he was difficult to arouse, foggy, and would fall right back to sleep. The patient endorses smoking crack cocaine 2 days ago. He was just discharged from [facility] which sounds like was for dual diagnosis. Denies IVDA. Reports occassional alcohol use. Smoked 4 cigarettes per day. Denies SI, HI. No fevers, chills, st, congestion, abd pain, n/v/d, urinary symptoms, cough, lightheadedness, palpitations, chest pain. Since arrival, vitals stable. WBC 13.5. Renal fx normal. Lytes normal. Glucose 120. Total bili 1.2, AST 439, ALT 144. Total CK greater than 42,000. Urinalysis significant for trace leukocytes, 3+ blood, 2+ protein. Urine tox screen positive for fentanyl and cocaine. Head CT negative for acute intracranial abnormality the limited due to motion. Cervical spine CT negative for acute osseous abnormality. CXR shows right upper lobe pneumonia. Femur CT shows fat stranding surrounding the gluteus minimus and gluteus medius muscles as well as the proximal portion of the vastus lateralis potentially due to muscle strain or contusion but no discrete hematoma identified. There is also fat stranding surrounding the sciatic nerve over a distance of approximately 12 cm from the level of the ischial tuberosity to the mid thigh. No fracture. In the ED, has received IV Zosyn and vanco, IV fluids. Hospital course: 33 year old male with history of anxiety/depression and crack cocaine abuse admitted for cocaine induced rhabdomyolysis, elevated LFTs, right lower extremity pain and pneumonia, patient treated with IV fluids, IV antibiotics CPK trending down, right lower extremity pain was improving, CT right leg showed no evidence of hematoma or necrotizing fasciitis , in regard to mood disorder he was continued on Seroquel and bupropion, dose of clonidine was reduced, but however patient decided to leave hospital against medical advice Earlier in the morning Patient composing room supervisor Jose Graham ([phone] OR [phone]) visited and requested for psych evaluation, as per patient's composing room supervisor he was [facility] to [facility] in [place] a 3 month program , patient but left program on 10/06, after few days stay. Time Attestation Discharge Coordination Time (in mins): 38 Quality: Safe Use of Opioids Does Pt have an Active Cancer Diagnosis on the Problem List?: No Quality: Stroke Does the patient have a stroke diagnosis?: No Physical Exam Vital Signs: Vital Signs: Last Vital Signs Temp 99.1 F 10/12/23 15:30 Pulse 89 10/12/23 15:30 Resp 14 10/12/23 15:30 BP 136/83 10/12/23 15:30 Pulse Ox 95 10/12/23 15:30 O2 Del Method Room Air 10/12/23 15:30 BMI result Body Mass Index 25.6 Const: Other: General in no acute distress. Anicteric sclera Neck supple no JVD. CVS regular rate rhythm, Respiratory lungs clear to auscultation, no respiratory distress, no wheeze, no rhonchi. Gastrointestinal abdomen soft, non tender, bowel sounds audible, no guarding , no rigidity. Extremities no edema. Neuro non focal ,moving all 4 extremity, speech clear. Skin small open sore lateral thigh, no bruising, localized area of pain right buttock, with no discoloration ,no induration, no fluctuation, good range of mo tion right hip right knee, Psych appropriate affect DS: Data Data Completed and Pending Labs on day of discharge: Preliminary micro results at discharge 10/11/23 14:04 Blood Culture - Preliminary Blood - Venous No growth after 24 hours. 07/08/24 13:53 Blood Culture - Preliminary Blood - Venous No growth after 24 hours. Discharge Plan Discharge Patient Disposition: Left Against Medical Advice Discharge Diagnosis: rhabdo Referrals: Physician,None [Primary Care Provider] - 1 Week Discharge Medications: No Action clonidine HCl 0.1 mg Tablet 0.1 mg PO DAILY quetiapine [Seroquel] 300 mg Tablet 300 mg PO BEDTIME trazodone 50 mg Tablet 50 mg PO BEDTIME clonidine HCl 0.2 mg Tablet 0.2 mg PO BEDTIME bupropion HCl [Wellbutrin] 75 mg Tablet 150 mg PO BID Discharge Orders: Discharge Order (Routine); Ordered 10/13/23 Ordered By: Yuniel Gamez Print Language: Swedish Care Plan Goals: Rhabdomyolysis Pneumonia Health Concerns: Illicit drug use/mood disorder Plan of Treatment: Outpatient follow-up with PCP Assessment: As above Discharge Date/Time: 10/12/23 22:20
== END 2023-10-12 22:20 | disposition left against medical advice (07) | DRG 917 ==
LOC: HO.ED 13:47 → HO.EDOVER 16:25 → HO.S3 19:31
PROVIDERS: Admitting Provider Physician Assistant; Emergency Provider Emergency Medicine; Visit Provider Hospitalist
DX: T40.5X1A Poisoning by cocaine, accidental (unintentional), initial encounter (principal); J18.9 Pneumonia, unspecified organism; M62.82 Rhabdomyolysis; F17.210 Nicotine dependence, cigarettes, uncomplicated; F41.9 Anxiety disorder, unspecified; F32.A Depression, unspecified; Z71.6 Tobacco abuse counseling; Z79.899 Other long term (current) drug therapy
CPT/HCPCS: 36415; 70450; 71046; 72125; 73700; 80053; 80307; 81001; 82550; 85025; 86704; 86706; 86803; 87040; 87340; 87389; 99285; J0696; J1650; J2270; J2543; J3370

== ENCOUNTER → 2023-10-11 16:15 | Outpatient (BNV) | payer SELFPAY | PROVIDERS: Admitting Provider Physician Assistant; Emergency Provider Emergency Medicine; Visit Provider Physician Assistant | DX: F14.90 Cocaine use, unspecified, uncomplicated (principal); M62.82 Rhabdomyolysis; J18.9 Pneumonia, unspecified organism | CPT/HCPCS: 99223; 99239; 99499 ==